=== PATIENT | female | born 1945 | race Caucasian/White ===

== ENCOUNTER 2019-01-03 13:28 | Emergency (ER) | payer OTHER, MEDICARE, MEDICAID ==
[2019-01-03 13:31] VITALS: RESP 18; TEMP 98.7; O2SAT 99
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
[2019-01-03 17:57] VITALS: BP 142/83; PULSE 84
== END 2019-01-03 17:04 | disposition home or self-care (01) ==
LOC: H.ER 13:28
DX: S13.4XXA Sprain of ligaments of cervical spine, initial encounter (principal); V43.52XA Car driver injured in collision with other type car in traffic accident, initial encounter; Y92.410 Unspecified street and highway as the place of occurrence of the external cause; E11.9 Type 2 diabetes mellitus without complications; E78.00 Pure hypercholesterolemia, unspecified; I10 Essential (primary) hypertension; Z79.01 Long term (current) use of anticoagulants; Z86.711 Personal history of pulmonary embolism; Z86.718 Personal history of other venous thrombosis and embolism; Z86.73 Personal history of transient ischemic attack (TIA), and cerebral infarction without residual deficits; Z88.5 Allergy status to narcotic agent
CPT/HCPCS: 72125; 96372; 99284; J1885